=== PATIENT | female | born 1950 | race African-American/Black ===

== ENCOUNTER 2022-12-29 13:25 | Emergency (ER) | payer MEDICARE, MEDICAID ==
[~2022-12-29] VITALS: Ht 170.2 cm; Wt 55.0 kg
[2022-12-29 13:43] VITALS: TEMP 98.6; O2SAT 99
[2022-12-29 15:27] VITALS: BP 148/80; PULSE 100; RESP 18
[2022-12-29] MEDS ORDERED: IBUPROFEN 600MG TABLET PO ONE (15:30)
== END 2022-12-29 17:57 | disposition home or self-care (01) ==
LOC: ER 13:25
DX: F41.0 Panic disorder [episodic paroxysmal anxiety] (principal); E78.00 Pure hypercholesterolemia, unspecified; Z88.8 Allergy status to other drugs, medicaments and biological substances; V98.8XXA Other specified transport accidents, initial encounter; Y93.89 Activity, other specified; Y92.89 Other specified places as the place of occurrence of the external cause; Y99.8 Other external cause status
CPT/HCPCS: 99283